=== PATIENT | male | born 1970 | race Caucasian/White ===

== ENCOUNTER → 2021-01-08 | Outpatient (REF) | payer OTHER, BC ==
[2021-01-08 17:13] LABS: C REACTIVE PROTEIN QUANTITATIV < 0.30 MG/DL (0.00-0.30); CPK CREATINE PHOSPHOKINASE 112 U/L (39-308); IRON (FE) 82 UG/DL (65-175); MAGNESIUM LEVEL 2.1 MG/DL (1.8-2.4); RHEUMATOID FACTOR QUANT < 10.0 IU/ML (<15.0); TOTAL 25(OH) VITAMIN D 22.4 NG/ML (30.0-100.0)
[2021-01-08 17:14] LABS: VITAMIN B12 LEVEL 600 PG/ML (247-911)
[2021-01-13 00:07] LABS: ANA (HEP2) Negative (.); CYCLIC CITRULLINATED PEPTIDE 8 units (0-19)
== END ==
LOC: M SFHCRHEU 14:27
PROVIDERS: ATTEND Internal Medicine
DX: M25.40 Effusion, unspecified joint (principal); M79.10 Myalgia, unspecified site